=== PATIENT | male | born 1935 | race Caucasian/White ===

== ENCOUNTER 2018-03-08 14:11 | Emergency (ER) | payer MEDICARE, BC, OTHER ==
[~2018-03-08] VITALS: Ht 180.3 cm; Wt 110.0 kg
[2018-03-08] MEDS ORDERED: CEPH-572 PO (14:58)
[2018-03-08 15:41] VITALS: BP 148/77
== END 2018-03-08 15:47 | disposition home or self-care (01) ==
LOC: ER 14:12 → EDBD 14:12 → ER 15:47
DX: S62.622A Displaced fracture of middle phalanx of right middle finger, initial encounter for closed fracture (principal); Z87.891 Personal history of nicotine dependence; W10.1XXA Fall (on)(from) sidewalk curb, initial encounter; Y93.89 Activity, other specified; Y92.89 Other specified places as the place of occurrence of the external cause; Y99.8 Other external cause status
CPT/HCPCS: 29130; 99284

== ENCOUNTER 2022-03-22 03:04 | Emergency (ER) | payer OTHER, MEDICARE, BC ==
[~2022-03-22] VITALS: Ht 167.6 cm; Wt 100.0 kg
[2022-03-22] MEDS ORDERED: nitroGLYCERIN 1gm ointment UD TP ONE (03:10)
[2022-03-22] MEDS ORDERED: diphenhydrAMINE 50 mg/ml inj ONE (03:42)
[2022-03-22 04:04] LABS: BASOPHILS % (AUTO) 0.7 % (0-1); EOSINOPHILS # (AUTO) 0.2 X10'3 (0-0.9); EOSINOPHILS % (AUTO) 3.3 % (0-6); HEMATOCRIT 37.8 % (42.0-52.0); HEMOGLOBIN 12.6 g/dl (14.0-17.9); LYMPHOCYTES # (AUTO) 1.2 X10'3 (1.1-4.8); LYMPHOCYTES % (AUTO) 18.4 % (21-51); MEAN CORPUSCULAR HEMOGLOBIN 30.3 PG (27.0-31.0); MEAN CORPUSCULAR HGB CONC 33.3 g/dL (33.0-36.5); MEAN CORPUSCULAR VOLUME 90.9 FL (78-98); MONOCYTES # (AUTO) 0.7 X10'3 (0-0.9); NEUTROPHILS # (AUTO) 4.6 X10'3 (1.8-7.7); NEUTROPHILS % (AUTO) 67.6 % (42-75); PLATELET COUNT 358 X10'3 (140-440); RED BLOOD COUNT 4.16 X10'6 (4.70-6.10); RED CELL DISTRIBUTION WIDTH 14.6 % (11.5-14.5); WHITE BLOOD COUNT 6.8 X10'3 (4.5-11.0)
[2022-03-22 04:42] LABS: ALANINE AMINOTRANSFERASE 17 U/L (12-78); ALBUMIN 3.2 G/DL (3.4-5.0); ALKALINE PHOSPHATASE 59 IU/L (46-116); ANION GAP 3 (8-16); ASPARTATE AMINO TRANSFERASE 14 U/L (10-37); BILIRUBIN,TOTAL 0.9 MG/DL (0.1-1.0); BLOOD UREA NITROGEN 25 MG/DL (7-18); BUN/CREATININE RATIO 18.4 (5.4-32.0); CALCIUM 8.4 MG/DL (8.5-10.1); CHLORIDE 106 MMOL/L (99-107); CREATININE 1.36 MG/DL (0.60-1.10); GLUCOSE 104 MG/DL (70-104); POTASSIUM 3.7 MMOL/L (3.5-5.1); SODIUM 140 MMOL/L (135-145); TOTAL CARBON DIOXIDE 30.9 MMOL/L (24-32); TOTAL PROTEIN 6.4 G/DL (6.4-8.2); eGFR 49 ML/MIN
[2022-03-22] MEDS ORDERED: furosemide 10 MG/1 ML 10ml inj IV ONE (05:25)
--- NOTE | 2022-03-22 06:49 | NUR ---
AWAITING TRANSPORTATION FROM [facility] [place]
[2022-03-22 09:49] VITALS: BP 166/70
== END 2022-03-22 09:48 | disposition home or self-care (01) ==
LOC: ER 03:04
DX: R06.02 Shortness of breath (principal); I50.9 Heart failure, unspecified; Z72.89 Other problems related to lifestyle
CPT/HCPCS: 36415; 71045; 80053; 83880; 84484; 85025; 85610; 93005; 96374; 99285; J1200; J1940

== ENCOUNTER 2023-11-12 15:01 | Emergency (ER) | payer OTHER, MEDICARE, BC ==
[~2023-11-12] VITALS: Ht 167.6 cm; Wt 130.0 kg
[2023-11-12] MEDS ORDERED: TETanus/Pertussis (Acell)/Diphther VAC/PF (Tdap-Adult) 0.5ml syringe IMVAC ONE (19:00)
[2023-11-12] MEDS ORDERED: LIDOCAINE 1%/EPI 1:100,000 inj. 10 ML multi-dose vial IJ ONE (19:00)
[2023-11-12] MEDS ORDERED: ipratropium/albuterol 3ml nebule NEB ONE (20:25)
[2023-11-12] MEDS ORDERED: CEPH-585 PO ×2 (20:31)
[2023-11-12] MEDS ORDERED: FURO-150 PO (20:31)
[2023-11-12 20:34] VITALS: PULSE 72; RESP 18; O2SAT 98
[2023-11-12 20:42] VITALS: PULSE 72; RESP 18; O2SAT 97
[2023-11-12 20:48] VITALS: BP 156/89
[2023-11-12 21:22] LABS: BASOPHILS # (AUTO) 0.1 X10'3 (0-0.2); BASOPHILS % (AUTO) 0.7 % (0-1); EOSINOPHILS # (AUTO) 0.1 X10'3 (0-0.9); EOSINOPHILS % (AUTO) 1.3 % (0-6); HEMATOCRIT 35.2 % (42.0-52.0); HEMOGLOBIN 11.5 g/dl (14.0-17.9); LYMPHOCYTES # (AUTO) 1.5 X10'3 (1.1-4.8); LYMPHOCYTES % (AUTO) 15.7 % (21-51); MEAN CORPUSCULAR HEMOGLOBIN 30.4 PG (27.0-31.0); MEAN CORPUSCULAR HGB CONC 32.6 g/dL (33.0-36.5); MEAN CORPUSCULAR VOLUME 93.5 FL (78-98); MONOCYTES % (AUTO) 10.1 % (2-12); NEUTROPHILS # (AUTO) 6.9 X10'3 (1.8-7.7); NEUTROPHILS % (AUTO) 72.2 % (42-75); PLATELET COUNT 438 X10'3 (140-440); RED BLOOD COUNT 3.77 X10'6 (4.70-6.10); RED CELL DISTRIBUTION WIDTH 13.9 % (11.5-14.5); WHITE BLOOD COUNT 9.6 X10'3 (4.5-11.0)
[2023-11-12] MEDS ORDERED: AMOX-580 PO (21:29)
[2023-11-12 22:09] VITALS: PULSE 64; RESP 18; TEMP 98.5; O2SAT 98
[2023-11-12 22:26] LABS: ALANINE AMINOTRANSFERASE 20 U/L (12-78); ALBUMIN/GLOBULIN RATIO 0.9 (1.1-1.5); ALKALINE PHOSPHATASE 50 IU/L (46-116); ANION GAP 8 (8-16); ASPARTATE AMINO TRANSFERASE 15 U/L (10-37); BILIRUBIN,TOTAL 0.5 MG/DL (0.1-1.0); BLOOD UREA NITROGEN 33 MG/DL (7-18); BUN/CREATININE RATIO 20.1 (10.0-20.0); CALCIUM 8.6 MG/DL (8.5-10.1); CHLORIDE 106 MMOL/L (99-107); CREATININE 1.64 MG/DL (0.60-1.10); GLUCOSE 107 MG/DL (70-104); POTASSIUM 4.2 MMOL/L (3.5-5.1); SODIUM 143 MMOL/L (135-145); TOTAL CARBON DIOXIDE 29.4 MMOL/L (24-32); TOTAL PROTEIN 6.3 G/DL (6.4-8.2); eCRCL 28 ML/MIN; eGFR 40 ML/MIN
== END 2023-11-12 23:49 | disposition home or self-care (01) ==
LOC: ER 15:02
DX: S81.812A Laceration without foreign body, left lower leg, initial encounter (principal)
CPT/HCPCS: 12035; 36415; 71045; 80053; 84145; 85025; 90471; 90715; 94640; 94760; 99284; A6258; A6446

== ENCOUNTER 2023-11-23 07:34 | Inpatient (IN) | payer MEDICARE, BC, OTHER ==
[~2023-11-23] VITALS: Ht 167.6 cm; Wt 91.5 kg
[~2023-11-23 07:34] MED LIST: AMOX-580 PO
[2023-11-23] MEDS ORDERED: piperacillin/tazo 3.375gm/50ml 50 ML IV ONE (08:40)
[2023-11-23 09:25] LABS: BILIRUBIN,URINE NEGATIVE (Neg); CLARITY,URINE CLEAR (Clear); COLOR,URINE YELLOW (Yellow); GLUCOSE, URINE NEGATIVE (Neg); KETONES,URINE NEGATIVE (Neg); LEUKOCYTE ESTERASE ,URINE NEGATIVE (Neg); NITRITES, URINE NEGATIVE (Neg); OCCULT BLOOD,URINE NEGATIVE (Neg); PROTEIN,URINE NEGATIVE (Neg); UROBILINOGEN,URINE 0.2 E.U/dL (0.2-1.0)
[2023-11-23 09:26] LABS: BASOPHILS # (AUTO) 0.1 X10'3 (0-0.2); BASOPHILS % (AUTO) 0.7 % (0-1); EOSINOPHILS % (AUTO) 0.2 % (0-6); HEMATOCRIT 35.1 % (42.0-52.0); HEMOGLOBIN 11.2 g/dl (14.0-17.9); LYMPHOCYTES # (AUTO) 0.9 X10'3 (1.1-4.8); LYMPHOCYTES % (AUTO) 6.1 % (21-51); MEAN CORPUSCULAR HEMOGLOBIN 29.9 PG (27.0-31.0); MEAN CORPUSCULAR HGB CONC 31.8 g/dL (33.0-36.5); MEAN CORPUSCULAR VOLUME 93.8 FL (78-98); MEAN PLATELET VOLUME 8.3 FL (7.4-10.4); MONOCYTES # (AUTO) 1.3 X10'3 (0-0.9); PLATELET COUNT 501 X10'3 (140-440); RED BLOOD COUNT 3.74 X10'6 (4.70-6.10); RED CELL DISTRIBUTION WIDTH 13.7 % (11.5-14.5); WHITE BLOOD COUNT 14.3 X10'3 (4.5-11.0)
[2023-11-23 09:27] LABS: UA COLLECTION TYPE NON-SPECIFIED
[2023-11-23 09:37] LABS: ALANINE AMINOTRANSFERASE 20 U/L (12-78); ALBUMIN 2.9 G/DL (3.4-5.0); ALBUMIN/GLOBULIN RATIO 0.8 (1.1-1.5); ALKALINE PHOSPHATASE 61 IU/L (46-116); ANION GAP 1 (8-16); ASPARTATE AMINO TRANSFERASE 15 U/L (10-37); BILIRUBIN,TOTAL 0.9 MG/DL (0.1-1.0); BLOOD UREA NITROGEN 34 MG/DL (7-18); BUN/CREATININE RATIO 21.3 (10.0-20.0); CALCIUM 8.6 MG/DL (8.5-10.1); CHLORIDE 102 MMOL/L (99-107); GLUCOSE 110 MG/DL (70-104); MAGNESIUM 2.3 MG/DL (1.5-2.4); POTASSIUM 4.1 MMOL/L (3.5-5.1); SODIUM 136 MMOL/L (135-145); TOTAL CARBON DIOXIDE 32.9 MMOL/L (24-32); TOTAL PROTEIN 6.5 G/DL (6.4-8.2); eCRCL 28 ML/MIN; eGFR 41 ML/MIN
[2023-11-23] MEDS ORDERED: HYDROcodone/acetaminophen 10/325mg tab PO ONE (11:20)
[2023-11-23] MEDS ORDERED: HYDROcodone/acetaminophen 5mg/325mg tablet PO PRN (13:30)
[2023-11-23] MEDS ORDERED: morphine 2 MG/ML inj. syringe IV PRN ×2 (13:30)
[2023-11-23] MEDS ORDERED: magnesium Cl slow-release 64mg tablet PO PRN (13:30)
[2023-11-23] MEDS ORDERED: mag hydrox/Alum hydrox/simeth 30ml oral suspension PO PRN (13:30)
[2023-11-23] MEDS ORDERED: potassium Cl 20 mEq SR tablet PO PRN ×2 (13:30)
[2023-11-23] MEDS ORDERED: acetaminophen 325mg tablet PO PRN (13:30)
[2023-11-23] MEDS ORDERED: ondansetron/PF 4mg/2ml inj IV PRN (13:30)
[2023-11-23] MEDS ORDERED: magnesium 2GM in 50ml NS 50 ML IV PRN (13:30)
[2023-11-23] MEDS ORDERED: potassium Cl 40MEQ/1/2NS 520ml 520 ML IV PRN (13:30)
[2023-11-23] MEDS ORDERED: magnesium hydroxide 30ml (MOM) UD suspension PO PRN (13:30)
[2023-11-23] MEDS ORDERED: magnesium 4gm in 100ml NS 100 ML IV PRN (13:30)
[2023-11-23] MEDS ORDERED: piperacillin/tazo 3.375gm/50ml 50 ML IV SCH (13:50)
[2023-11-23 14:08] LABS: MAGNESIUM 2.3 MG/DL (1.5-2.4); POTASSIUM 3.9 MMOL/L (3.5-5.1)
[2023-11-23 14:21] LABS: HEMOGLOBIN A1C 5.7 % (4.5-6.2)
[2023-11-23] MEDS: clindamycin-Cleocin 900mg/D5W 50 ML IV SCH ×2 (14:42→16:00)
[2023-11-23] MEDS: vancomycin/NS 1 GM ADD-VANTAGE 250 ML IV SCH (14:52)
[2023-11-23] MEDS: piperacillin/tazo 3.375gm/50ml 50 ML IV SCH (17:43)
[2023-11-23] MEDS: K and/or MAG REPLACEMENT MC SCH (20:00)
[2023-11-23] MEDS: Dakins solution (1/4 strength) 473ml solution TP SCH (20:00)
[2023-11-23 21:00] VITALS: BP 150/70; PULSE 71; RESP 18; TEMP 97.9; O2SAT 93
[2023-11-23] MEDS: docusate sod 100mg capsule PO SCH (22:00)
[2023-11-23] MEDS: heparin, porcine 5000 units/ml vial SQ SCH (22:48)
[2023-11-24] MEDS: clindamycin-Cleocin 900mg/D5W 50 ML IV SCH ×3 (00:57→16:45)
[2023-11-24] MEDS: piperacillin/tazo 3.375gm/50ml 50 ML IV SCH ×3 (02:41→21:53)
[2023-11-24] MEDS ORDERED: MULT-622 PO (03:13)
[2023-11-24] MEDS ORDERED: BUDE10.2 INH (03:13)
[2023-11-24] MEDS ORDERED: CYAN-34 PO (03:13)
[2023-11-24] MEDS ORDERED: FINA5TAB11 PO (03:13)
[2023-11-24] MEDS ORDERED: HYDR50TA46 PO (03:13)
[2023-11-24] MEDS ORDERED: FURO-150 PO (03:13)
[2023-11-24] MEDS ORDERED: UMEC62.5 INH (03:13)
[2023-11-24] MEDS ORDERED: CARV-50 PO (03:13)
[2023-11-24 06:00] VITALS: BP 176/61; PULSE 70; RESP 20; TEMP 97.5; O2SAT 96
[2023-11-24] MEDS: K and/or MAG REPLACEMENT MC SCH ×2 (08:00→20:00)
[2023-11-24] MEDS: heparin, porcine 5000 units/ml vial SQ SCH ×2 (08:25→21:52)
[2023-11-24] MEDS: docusate sod 100mg capsule PO SCH ×2 (08:28→21:52)
[2023-11-24 09:46] LABS: BASOPHILS % (AUTO) 0.4 % (0-1); EOSINOPHILS # (AUTO) 0.1 X10'3 (0-0.9); EOSINOPHILS % (AUTO) 1.3 % (0-6); HEMOGLOBIN 10.7 g/dl (14.0-17.9); LYMPHOCYTES # (AUTO) 0.8 X10'3 (1.1-4.8); MEAN CORPUSCULAR HEMOGLOBIN 30.3 PG (27.0-31.0); MEAN CORPUSCULAR HGB CONC 32.3 g/dL (33.0-36.5); MEAN PLATELET VOLUME 8.3 FL (7.4-10.4); MONOCYTES # (AUTO) 1.2 X10'3 (0-0.9); MONOCYTES % (AUTO) 11.3 % (2-12); NEUTROPHILS # (AUTO) 8.2 X10'3 (1.8-7.7); PLATELET COUNT 463 X10'3 (140-440); RED BLOOD COUNT 3.51 X10'6 (4.70-6.10); RED CELL DISTRIBUTION WIDTH 13.4 % (11.5-14.5); WHITE BLOOD COUNT 10.4 X10'3 (4.5-11.0)
[2023-11-24 10:04] LABS: ALANINE AMINOTRANSFERASE 15 U/L (12-78); ALBUMIN 2.5 G/DL (3.4-5.0); ALBUMIN/GLOBULIN RATIO 0.7 (1.1-1.5); ALKALINE PHOSPHATASE 50 IU/L (46-116); ANION GAP 6 (8-16); ASPARTATE AMINO TRANSFERASE 22 U/L (10-37); BILIRUBIN,TOTAL 0.8 MG/DL (0.1-1.0); BLOOD UREA NITROGEN 36 MG/DL (7-18); BUN/CREATININE RATIO 23.5 (10.0-20.0); CALCIUM 8.5 MG/DL (8.5-10.1); CHLORIDE 102 MMOL/L (99-107); CHOL/HDL RATIO 2.4 (0.00-4.99); CHOLESTEROL 120 MG/DL (0-200); CREATININE 1.53 MG/DL (0.60-1.10); GLUCOSE 91 MG/DL (70-104); HDL CHOLESTEROL 50 MG/DL (35-60); LDL CHOLESTEROL 57 MG/DL (50-100); MAGNESIUM 2.3 MG/DL (1.5-2.4); SODIUM 139 MMOL/L (135-145); TOTAL CARBON DIOXIDE 30.8 MMOL/L (24-32); TOTAL PROTEIN 6.1 G/DL (6.4-8.2); TRIGLYCERIDES 74 MG/DL (20-135); eCRCL 30 ML/MIN; eGFR 43 ML/MIN
[2023-11-24 12:00] VITALS: BP 157/54; PULSE 65; RESP 17; TEMP 97.7; O2SAT 98
[2023-11-24 14:09] LABS: C-REACTIVE PROTEIN 14.19 MG/DL (0.0-0.5)
[2023-11-24] MEDS: vancomycin/NS 1 GM ADD-VANTAGE 250 ML IV SCH (16:00)
[2023-11-24 18:00] VITALS: BP 158/58; PULSE 73; RESP 20; TEMP 97.5; O2SAT 99
[2023-11-24 22:00] VITALS: BP 135/57; PULSE 71; RESP 18; TEMP 98.2; O2SAT 97
[2023-11-24] MEDS ORDERED: furosemide 20MG tablet PO SCH (23:00)
[2023-11-25] VITALS (10 sets, daily range): BP systolic 147–187; BP diastolic 55–74; PULSE 64–76; RESP 16–22; TEMP 96.8–98.7; O2SAT 94–98
[2023-11-25] MEDS: clindamycin-Cleocin 900mg/D5W 50 ML IV SCH ×2 (01:19→08:01)
[2023-11-25] MEDS: Dakins solution (1/4 strength) 473ml solution TP SCH ×3 (01:19→20:00)
[2023-11-25] MEDS: piperacillin/tazo 3.375gm/50ml 50 ML IV SCH (05:02)
[2023-11-25 06:18] LABS: BASOPHILS % (AUTO) 0.3 % (0-1); EOSINOPHILS # (AUTO) 0.1 X10'3 (0-0.9); EOSINOPHILS % (AUTO) 1.1 % (0-6); HEMATOCRIT 31.4 % (42.0-52.0); HEMOGLOBIN 10.4 g/dl (14.0-17.9); LYMPHOCYTES # (AUTO) 0.9 X10'3 (1.1-4.8); LYMPHOCYTES % (AUTO) 9.8 % (21-51); MEAN CORPUSCULAR HEMOGLOBIN 30.7 PG (27.0-31.0); MEAN CORPUSCULAR VOLUME 93.2 FL (78-98); MEAN PLATELET VOLUME 7.9 FL (7.4-10.4); MONOCYTES # (AUTO) 1.1 X10'3 (0-0.9); MONOCYTES % (AUTO) 11.6 % (2-12); NEUTROPHILS # (AUTO) 7.2 X10'3 (1.8-7.7); NEUTROPHILS % (AUTO) 77.2 % (42-75); PLATELET COUNT 470 X10'3 (140-440); RED BLOOD COUNT 3.37 X10'6 (4.70-6.10); RED CELL DISTRIBUTION WIDTH 13.3 % (11.5-14.5); WHITE BLOOD COUNT 9.4 X10'3 (4.5-11.0)
[2023-11-25 06:27] LABS: ALANINE AMINOTRANSFERASE 17 U/L (12-78); ALBUMIN 2.4 G/DL (3.4-5.0); ALBUMIN/GLOBULIN RATIO 0.6 (1.1-1.5); ALKALINE PHOSPHATASE 48 IU/L (46-116); ANION GAP 4 (8-16); ASPARTATE AMINO TRANSFERASE 24 U/L (10-37); BILIRUBIN,TOTAL 0.8 MG/DL (0.1-1.0); BLOOD UREA NITROGEN 34 MG/DL (7-18); BUN/CREATININE RATIO 21.7 (10.0-20.0); CALCIUM 8.2 MG/DL (8.5-10.1); CHLORIDE 100 MMOL/L (99-107); CREATININE 1.57 MG/DL (0.60-1.10); GLUCOSE 96 MG/DL (70-104); MAGNESIUM 2.2 MG/DL (1.5-2.4); POTASSIUM 3.5 MMOL/L (3.5-5.1); SODIUM 135 MMOL/L (135-145); TOTAL CARBON DIOXIDE 31.3 MMOL/L (24-32); TOTAL PROTEIN 6.1 G/DL (6.4-8.2); eCRCL 29 ML/MIN; eGFR 42 ML/MIN
[2023-11-25] MEDS ORDERED: CARV6.253 PO (07:41)
[2023-11-25] MEDS: UMECLIDINIUM BROMIDE PO SCH (08:00)
[2023-11-25] MEDS: K and/or MAG REPLACEMENT MC SCH ×2 (08:00→20:00)
[2023-11-25] MEDS ORDERED: CefTRIAXone 2gm/D5W 50ml BAG 50 ML IV SCH (08:00)
[2023-11-25] MEDS: budesonide 0.5mg/2ml UD nebule IH SCH ×2 (08:00→20:07)
[2023-11-25] MEDS: albuterol 2.5 MG/3 ML nebule NEB SCH ×3 (08:00→20:07)
[2023-11-25] MEDS ORDERED: furosemide 20MG tablet PO SCH (08:00)
[2023-11-25] MEDS: hydrALAZINE 25 MG tablet PO SCH ×3 (08:36→20:01)
[2023-11-25] MEDS: docusate sod 100mg capsule PO SCH ×2 (08:37→20:01)
[2023-11-25] MEDS: carvedilol 6.25mg tablet PO SCH ×2 (08:37→20:00)
[2023-11-25] MEDS: heparin, porcine 5000 units/ml vial SQ SCH ×2 (10:51→20:01)
[2023-11-25] MEDS: cyanocobalamin 500mcg tablet PO SCH (10:55)
[2023-11-25] MEDS: finasteride 5mg tablet PO SCH (10:55)
[2023-11-25] MEDS: HYDROcodone/acetaminophen 10/325mg tab PO PRN (14:50)
[2023-11-25] MEDS: vancomycin/NS 1 GM ADD-VANTAGE 250 ML IV SCH (14:50)
[2023-11-25] MEDS: metroNIDAZOLE-Flagyl 500mg/NS 100 ML IV SCH ×2 (16:49→23:31)
[2023-11-25] MEDS: furosemide 40mg/4ml inj IV SCH (20:01)
[2023-11-26] VITALS (14 sets, daily range): BP systolic 128–196; BP diastolic 44–126; PULSE 61–74; RESP 14–20; TEMP 97.3–98.4; O2SAT 92–100
[2023-11-26] MEDS: albuterol 2.5 MG/3 ML nebule NEB SCH ×4 (03:26→20:29)
[2023-11-26 06:33] LABS: BASOPHILS # (AUTO) 0.1 X10'3 (0-0.2); EOSINOPHILS # (AUTO) 0.2 X10'3 (0-0.9); EOSINOPHILS % (AUTO) 1.7 % (0-6); HEMATOCRIT 32.1 % (42.0-52.0); HEMOGLOBIN 10.5 g/dl (14.0-17.9); LYMPHOCYTES # (AUTO) 1.1 X10'3 (1.1-4.8); LYMPHOCYTES % (AUTO) 10.4 % (21-51); MEAN CORPUSCULAR HEMOGLOBIN 30.4 PG (27.0-31.0); MEAN CORPUSCULAR HGB CONC 32.7 g/dL (33.0-36.5); MEAN CORPUSCULAR VOLUME 93.2 FL (78-98); MEAN PLATELET VOLUME 8.2 FL (7.4-10.4); MONOCYTES # (AUTO) 1.3 X10'3 (0-0.9); MONOCYTES % (AUTO) 12.7 % (2-12); NEUTROPHILS # (AUTO) 7.5 X10'3 (1.8-7.7); NEUTROPHILS % (AUTO) 74.2 % (42-75); PLATELET COUNT 472 X10'3 (140-440); RED BLOOD COUNT 3.44 X10'6 (4.70-6.10); RED CELL DISTRIBUTION WIDTH 13.1 % (11.5-14.5); WHITE BLOOD COUNT 10.1 X10'3 (4.5-11.0)
[2023-11-26 06:45] LABS: ALANINE AMINOTRANSFERASE 16 U/L (12-78); ALBUMIN 2.4 G/DL (3.4-5.0); ALBUMIN/GLOBULIN RATIO 0.6 (1.1-1.5); ALKALINE PHOSPHATASE 47 IU/L (46-116); ANION GAP 7 (8-16); ASPARTATE AMINO TRANSFERASE 25 U/L (10-37); BILIRUBIN,TOTAL 0.5 MG/DL (0.1-1.0); BLOOD UREA NITROGEN 39 MG/DL (7-18); BUN/CREATININE RATIO 25.7 (10.0-20.0); CALCIUM 8.5 MG/DL (8.5-10.1); CHLORIDE 101 MMOL/L (99-107); CREATININE 1.52 MG/DL (0.60-1.10); GLUCOSE 102 MG/DL (70-104); MAGNESIUM 2.3 MG/DL (1.5-2.4); POTASSIUM 3.6 MMOL/L (3.5-5.1); SODIUM 138 MMOL/L (135-145); TOTAL CARBON DIOXIDE 30.2 MMOL/L (24-32); TOTAL PROTEIN 6.2 G/DL (6.4-8.2); eCRCL 30 ML/MIN; eGFR 43 ML/MIN
[2023-11-26] MEDS: furosemide 40mg/4ml inj IV SCH ×2 (07:50→21:35)
[2023-11-26] MEDS: carvedilol 6.25mg tablet PO SCH ×2 (07:50→21:40)
[2023-11-26] MEDS: finasteride 5mg tablet PO SCH (07:50)
[2023-11-26] MEDS: hydrALAZINE 25 MG tablet PO SCH ×3 (07:52→21:39)
[2023-11-26] MEDS: docusate sod 100mg capsule PO SCH ×2 (07:53→21:39)
[2023-11-26] MEDS: cyanocobalamin 500mcg tablet PO SCH (07:53)
[2023-11-26] MEDS: heparin, porcine 5000 units/ml vial SQ SCH ×2 (07:53→21:42)
[2023-11-26] MEDS: K and/or MAG REPLACEMENT MC SCH ×2 (08:00→20:00)
[2023-11-26] MEDS: Dakins solution (1/4 strength) 473ml solution TP SCH ×2 (08:00→21:52)
[2023-11-26] MEDS: UMECLIDINIUM BROMIDE PO SCH (08:00)
[2023-11-26] MEDS ORDERED: CefTRIAXone/D5W-Rocephin 1gm 50 ML IV SCH (08:00)
[2023-11-26] MEDS: budesonide 0.5mg/2ml UD nebule IH SCH ×2 (08:29→20:29)
[2023-11-26] MEDS: metroNIDAZOLE-Flagyl 500mg/NS 100 ML IV SCH ×2 (09:59→17:16)
[2023-11-26] MEDS ORDERED: VANCOMYCIN LEVEL IV ONE (13:30)
[2023-11-26] MEDS: vancomycin/NS 1 GM ADD-VANTAGE 250 ML IV SCH (14:27)
[2023-11-27] VITALS (11 sets, daily range): BP systolic 138–163; BP diastolic 48–71; PULSE 60–74; RESP 15–18; TEMP 96.6–98.2; O2SAT 94–98
[2023-11-27] MEDS: albuterol 2.5 MG/3 ML nebule NEB SCH ×4 (02:00→20:13)
[2023-11-27 06:56] LABS: BASOPHILS % (AUTO) 0.5 % (0-1); EOSINOPHILS # (AUTO) 0.2 X10'3 (0-0.9); EOSINOPHILS % (AUTO) 2.8 % (0-6); HEMATOCRIT 31.7 % (42.0-52.0); HEMOGLOBIN 10.4 g/dl (14.0-17.9); LYMPHOCYTES % (AUTO) 11.8 % (21-51); MEAN CORPUSCULAR HEMOGLOBIN 30.3 PG (27.0-31.0); MEAN CORPUSCULAR HGB CONC 32.7 g/dL (33.0-36.5); MEAN CORPUSCULAR VOLUME 92.5 FL (78-98); MEAN PLATELET VOLUME 7.9 FL (7.4-10.4); MONOCYTES % (AUTO) 11.4 % (2-12); NEUTROPHILS # (AUTO) 6.2 X10'3 (1.8-7.7); NEUTROPHILS % (AUTO) 73.5 % (42-75); PLATELET COUNT 496 X10'3 (140-440); RED BLOOD COUNT 3.42 X10'6 (4.70-6.10); RED CELL DISTRIBUTION WIDTH 13.1 % (11.5-14.5); WHITE BLOOD COUNT 8.5 X10'3 (4.5-11.0)
[2023-11-27 07:09] LABS: ALANINE AMINOTRANSFERASE 17 U/L (12-78); ALBUMIN 2.3 G/DL (3.4-5.0); ALBUMIN/GLOBULIN RATIO 0.6 (1.1-1.5); ALKALINE PHOSPHATASE 41 IU/L (46-116); ANION GAP 3 (8-16); ASPARTATE AMINO TRANSFERASE 23 U/L (10-37); BILIRUBIN,TOTAL 0.4 MG/DL (0.1-1.0); BLOOD UREA NITROGEN 41 MG/DL (7-18); BUN/CREATININE RATIO 25.2 (10.0-20.0); CALCIUM 8.6 MG/DL (8.5-10.1); CHLORIDE 102 MMOL/L (99-107); CREATININE 1.63 MG/DL (0.60-1.10); GLUCOSE 102 MG/DL (70-104); MAGNESIUM 2.1 MG/DL (1.5-2.4); POTASSIUM 3.8 MMOL/L (3.5-5.1); SODIUM 138 MMOL/L (135-145); TOTAL CARBON DIOXIDE 33.5 MMOL/L (24-32); eCRCL 28 ML/MIN; eGFR 40 ML/MIN
[2023-11-27] MEDS: Dakins solution (1/4 strength) 473ml solution TP SCH ×2 (08:00→20:00)
[2023-11-27] MEDS: K and/or MAG REPLACEMENT MC SCH ×2 (08:00→20:00)
[2023-11-27] MEDS: UMECLIDINIUM BROMIDE PO SCH (08:00)
[2023-11-27] MEDS: budesonide 0.5mg/2ml UD nebule IH SCH ×2 (08:42→20:13)
[2023-11-27] MEDS: docusate sod 100mg capsule PO SCH ×2 (08:53→22:29)
[2023-11-27] MEDS: cyanocobalamin 500mcg tablet PO SCH (08:53)
[2023-11-27] MEDS: carvedilol 6.25mg tablet PO SCH ×2 (08:53→22:20)
[2023-11-27] MEDS: hydrALAZINE 25 MG tablet PO SCH ×3 (08:53→22:20)
[2023-11-27] MEDS: furosemide 40mg/4ml inj IV SCH ×2 (08:54→22:27)
[2023-11-27] MEDS: finasteride 5mg tablet PO SCH (08:54)
[2023-11-27] MEDS: heparin, porcine 5000 units/ml vial SQ SCH ×2 (09:03→22:23)
[2023-11-27] MEDS ORDERED: levoFLOXACIN 250mg tablet PO SCH (11:00)
[2023-11-27] MEDS ORDERED: VANCOmycin 1250MG/NS 250ml Bag 250 ML IV SCH (15:00)
[2023-11-27] MEDS: JUVEN Shake w/Arg/Glut/Ca2+Bmb (Juven 19.3gm) pkt 240ml PO SCH (19:00)
[2023-11-28] VITALS (12 sets, daily range): BP systolic 152–178; BP diastolic 60–68; PULSE 62–73; RESP 16–18; TEMP 97.4–98.1; O2SAT 94–96
[2023-11-28] MEDS: albuterol 2.5 MG/3 ML nebule NEB SCH ×4 (02:00→20:31)
[2023-11-28] MEDS: K and/or MAG REPLACEMENT MC SCH ×2 (07:54→20:00)
[2023-11-28] MEDS: UMECLIDINIUM BROMIDE PO SCH (08:00)
[2023-11-28] MEDS: Dakins solution (1/4 strength) 473ml solution TP SCH ×2 (08:00→20:00)
[2023-11-28] MEDS: docusate sod 100mg capsule PO SCH ×2 (08:01→20:00)
[2023-11-28] MEDS: hydrALAZINE 25 MG tablet PO SCH ×3 (08:01→20:29)
[2023-11-28] MEDS: carvedilol 6.25mg tablet PO SCH ×2 (08:01→20:28)
[2023-11-28] MEDS: JUVEN Shake w/Arg/Glut/Ca2+Bmb (Juven 19.3gm) pkt 240ml PO SCH ×3 (08:01→17:40)
[2023-11-28] MEDS: sulfamethoxazole/trimethoprim DS (800/160mg) tablet PO SCH ×2 (08:01→20:27)
[2023-11-28] MEDS: cyanocobalamin 500mcg tablet PO SCH (08:02)
[2023-11-28] MEDS: heparin, porcine 5000 units/ml vial SQ SCH ×2 (08:03→20:31)
[2023-11-28] MEDS: furosemide 40mg/4ml inj IV SCH ×4 (08:04→23:18)
[2023-11-28 08:27] LABS: BASOPHILS % (AUTO) 0.4 % (0-1); EOSINOPHILS # (AUTO) 0.2 X10'3 (0-0.9); EOSINOPHILS % (AUTO) 2.2 % (0-6); HEMOGLOBIN 10.5 g/dl (14.0-17.9); LYMPHOCYTES % (AUTO) 11.2 % (21-51); MEAN CORPUSCULAR HEMOGLOBIN 29.6 PG (27.0-31.0); MEAN CORPUSCULAR HGB CONC 31.9 g/dL (33.0-36.5); MEAN CORPUSCULAR VOLUME 92.9 FL (78-98); MONOCYTES % (AUTO) 11.5 % (2-12); NEUTROPHILS # (AUTO) 6.5 X10'3 (1.8-7.7); NEUTROPHILS % (AUTO) 74.7 % (42-75); PLATELET COUNT 538 X10'3 (140-440); RED BLOOD COUNT 3.56 X10'6 (4.70-6.10); RED CELL DISTRIBUTION WIDTH 13.4 % (11.5-14.5); WHITE BLOOD COUNT 8.8 X10'3 (4.5-11.0)
[2023-11-28] MEDS: budesonide 0.5mg/2ml UD nebule IH SCH ×2 (08:29→20:31)
[2023-11-28 08:58] LABS: ALANINE AMINOTRANSFERASE 22 U/L (12-78); ALBUMIN 2.4 G/DL (3.4-5.0); ALBUMIN/GLOBULIN RATIO 0.6 (1.1-1.5); ALKALINE PHOSPHATASE 38 IU/L (46-116); ANION GAP 6 (8-16); ASPARTATE AMINO TRANSFERASE 24 U/L (10-37); BILIRUBIN,TOTAL 0.5 MG/DL (0.1-1.0); BLOOD UREA NITROGEN 42 MG/DL (7-18); BUN/CREATININE RATIO 27.5 (10.0-20.0); CALCIUM 8.4 MG/DL (8.5-10.1); CHLORIDE 101 MMOL/L (99-107); CREATININE 1.53 MG/DL (0.60-1.10); GLUCOSE 98 MG/DL (70-104); POTASSIUM 3.7 MMOL/L (3.5-5.1); SODIUM 140 MMOL/L (135-145); TOTAL CARBON DIOXIDE 33.5 MMOL/L (24-32); TOTAL PROTEIN 6.1 G/DL (6.4-8.2); eCRCL 30 ML/MIN; eGFR 43 ML/MIN
[2023-11-28] MEDS: finasteride 5mg tablet PO SCH (10:00)
[2023-11-28] MEDS: HYDROcodone/acetaminophen 10/325mg tab PO PRN (16:37)
[2023-11-28] MEDS: JUVEN Smoothie Arginine/Glut./Ca2+Bmb (Juven 19.3pkt) 240ml cup PO SCH (17:40)
[2023-11-29] VITALS (10 sets, daily range): BP systolic 124–155; BP diastolic 43–70; PULSE 65–78; RESP 16–18; TEMP 97.6–98.4; O2SAT 94–95
[2023-11-29] MEDS: albuterol 2.5 MG/3 ML nebule NEB SCH ×4 (02:00→20:36)
[2023-11-29 06:52] LABS: ALBUMIN 2.4 G/DL (3.4-5.0); ANION GAP 6 (8-16); BLOOD UREA NITROGEN 41 MG/DL (7-18); BUN/CREATININE RATIO 25.5 (10.0-20.0); CALCIUM 8.4 MG/DL (8.5-10.1); CHLORIDE 101 MMOL/L (99-107); CREATININE 1.61 MG/DL (0.60-1.10); GLUCOSE 114 MG/DL (70-104); SODIUM 139 MMOL/L (135-145); TOTAL CARBON DIOXIDE 32.4 MMOL/L (24-32); eCRCL 28 ML/MIN; eGFR 41 ML/MIN
[2023-11-29 06:56] LABS: BASOPHILS # (AUTO) 0.1 X10'3 (0-0.2); BASOPHILS % (AUTO) 0.8 % (0-1); EOSINOPHILS # (AUTO) 0.3 X10'3 (0-0.9); EOSINOPHILS % (AUTO) 2.9 % (0-6); HEMATOCRIT 31.8 % (42.0-52.0); HEMOGLOBIN 10.4 g/dl (14.0-17.9); LYMPHOCYTES # (AUTO) 1.2 X10'3 (1.1-4.8); LYMPHOCYTES % (AUTO) 11.4 % (21-51); MEAN CORPUSCULAR HEMOGLOBIN 29.9 PG (27.0-31.0); MEAN CORPUSCULAR HGB CONC 32.5 g/dL (33.0-36.5); MEAN CORPUSCULAR VOLUME 91.9 FL (78-98); MEAN PLATELET VOLUME 8.2 FL (7.4-10.4); MONOCYTES # (AUTO) 1.2 X10'3 (0-0.9); MONOCYTES % (AUTO) 11.6 % (2-12); NEUTROPHILS # (AUTO) 7.6 X10'3 (1.8-7.7); NEUTROPHILS % (AUTO) 73.3 % (42-75); PLATELET COUNT 535 X10'3 (140-440); RED BLOOD COUNT 3.46 X10'6 (4.70-6.10); RED CELL DISTRIBUTION WIDTH 13.2 % (11.5-14.5); WHITE BLOOD COUNT 10.3 X10'3 (4.5-11.0)
[2023-11-29] MEDS: JUVEN Smoothie Arginine/Glut./Ca2+Bmb (Juven 19.3pkt) 240ml cup PO SCH ×2 (07:30→18:17)
[2023-11-29] MEDS: JUVEN Shake w/Arg/Glut/Ca2+Bmb (Juven 19.3gm) pkt 240ml PO SCH ×3 (08:00→18:17)
[2023-11-29] MEDS: budesonide 0.5mg/2ml UD nebule IH SCH ×2 (08:25→20:36)
[2023-11-29] MEDS: Dakins solution (1/4 strength) 473ml solution TP SCH ×2 (09:00→20:00)
[2023-11-29] MEDS: UMECLIDINIUM BROMIDE PO SCH (09:00)
[2023-11-29] MEDS: K and/or MAG REPLACEMENT MC SCH ×2 (09:01→20:00)
[2023-11-29] MEDS: docusate sod 100mg capsule PO SCH ×2 (09:04→20:43)
[2023-11-29] MEDS: sulfamethoxazole/trimethoprim DS (800/160mg) tablet PO SCH ×2 (09:04→20:42)
[2023-11-29] MEDS: carvedilol 6.25mg tablet PO SCH ×2 (09:05→20:44)
[2023-11-29] MEDS: hydrALAZINE 25 MG tablet PO SCH ×3 (09:05→20:45)
[2023-11-29] MEDS: cyanocobalamin 500mcg tablet PO SCH (09:05)
[2023-11-29] MEDS: finasteride 5mg tablet PO SCH (09:06)
[2023-11-29] MEDS: furosemide 40mg/4ml inj IV SCH ×2 (09:07→20:48)
[2023-11-29] MEDS: heparin, porcine 5000 units/ml vial SQ SCH ×2 (09:09→20:43)
[2023-11-30] VITALS (9 sets, daily range): BP systolic 124–132; BP diastolic 56–75; PULSE 65–71; RESP 15–19; TEMP 97.3–98.9; O2SAT 92–98
[2023-11-30] MEDS: albuterol 2.5 MG/3 ML nebule NEB SCH ×3 (02:00→14:40)
[2023-11-30] MEDS: JUVEN Smoothie Arginine/Glut./Ca2+Bmb (Juven 19.3pkt) 240ml cup PO SCH (07:30)
[2023-11-30] MEDS: budesonide 0.5mg/2ml UD nebule IH SCH (07:47)
[2023-11-30] MEDS: K and/or MAG REPLACEMENT MC SCH (08:00)
[2023-11-30] MEDS: docusate sod 100mg capsule PO SCH (08:00)
[2023-11-30] MEDS: JUVEN Shake w/Arg/Glut/Ca2+Bmb (Juven 19.3gm) pkt 240ml PO SCH ×2 (08:00→13:00)
[2023-11-30] MEDS: hydrALAZINE 25 MG tablet PO SCH ×2 (08:36→13:00)
[2023-11-30] MEDS: cyanocobalamin 500mcg tablet PO SCH (08:37)
[2023-11-30] MEDS: carvedilol 6.25mg tablet PO SCH (08:37)
[2023-11-30] MEDS: sulfamethoxazole/trimethoprim DS (800/160mg) tablet PO SCH (08:41)
[2023-11-30] MEDS: finasteride 5mg tablet PO SCH (08:41)
[2023-11-30] MEDS: heparin, porcine 5000 units/ml vial SQ SCH (08:42)
[2023-11-30] MEDS: furosemide 40mg/4ml inj IV SCH (10:12)
[2023-11-30] MEDS: HYDROcodone/acetaminophen 10/325mg tab PO PRN (14:07)
[2023-11-30] MEDS ORDERED: VANCOMYCIN LEVEL IV ONE (14:30)
== END 2023-11-30 18:30 | DRG 853 ==
LOC: ER 07:35 → ED HOLD 13:33 → EDBEDREQ 17:29 → ORTHO 4S 20:50
PROVIDERS: ADMIT Internal Medicine; ATTEND Internal Medicine
PROC: 0JBP0ZZ Excision of Left Lower Leg Subcutaneous Tissue and Fascia, Open Approach (ICD-10-PCS; principal; 2023-11-25)
DX: A41.9 Sepsis, unspecified organism (principal); E43 Unspecified severe protein-calorie malnutrition; M72.6 Necrotizing fasciitis; G93.41 Metabolic encephalopathy; L03.116 Cellulitis of left lower limb; I13.0 Hypertensive heart and chronic kidney disease with heart failure and stage 1 through stage 4 chronic kidney disease, or unspecified chronic kidney disease; S81.812A Laceration without foreign body, left lower leg, initial encounter; J44.9 Chronic obstructive pulmonary disease, unspecified; N18.30 Chronic kidney disease, stage 3 unspecified; D75.839 Thrombocytosis, unspecified; G47.30 Sleep apnea, unspecified; I50.9 Heart failure, unspecified; Z87.891 Personal history of nicotine dependence; Z68.32 Body mass index [BMI] 32.0-32.9, adult; Z79.899 Other long term (current) drug therapy
CPT/HCPCS: 36410; 36415; 71045; 73700; 76937; 80048; 80053; 80061; 80202; 81003; 83036; 83605; 83735; 83880; 84132; 84145; 85025; 86140; 87040; 87070; 87075; 87077; 87081; 87186; 93005; 93306; 94640; 94760; 97116; 97530; 97535; 99285; A4349; A4620; A6212; A6213; A6253; A6258; A6446; A6449; C1751; G0378; J0696; J1644; J1940; J2270; J2543; J3370; J3490; J7040